=== PATIENT | female | born 1990 | race Two or more races ===

== ENCOUNTER 2025-02-16 14:02 | Emergency (ER) | payer OTHER ==
[~2025-02-16] VITALS: Ht 170.2 cm; Wt 70.3 kg
[2025-02-16] MEDS ORDERED: TRAMADOL HCL 50 MG TABLET PO ONE (14:30)
[2025-02-16 14:40] LABS: URINE APPEARANCE Clear; URINE BILIRRUBIN Negative (NEGATIVE); URINE BLOOD Negative; URINE COLOR Yellow; URINE GLUCOSE Negative (NEGATIVE); URINE KETONE Negative (NEGATIVE); URINE LEUKOCYTE Negative; URINE NITRATE Negative; URINE PROTEIN Negative (NEGATIVE); URINE UROBILINOGEN 0.2 E.U./dl
[2025-02-16 14:41] LABS: BASO % 0.3 % (0.1-1.2); EOS # 0.06 (0.04-0.54); EOS % 0.9 % (0.7-7.0); LYMPH # 2.10 (1.18-3.74); LYMPH % 30.1 % (19.3-53.1); MEAN PLATELET VOLUME 11.50 fl (9.4-12.4); MONO # 0.42 (0.24-0.82); MONO % 6.0 % (4.7-12.5); NEUT # 4.35 (1.56-6.13); NEUT % 62.4 % (34.0-71.1); RED CELL DISTRIBUTION WIDTH 13.2 % (11.6-14.4)
[2025-02-16 14:44] LABS: URINE BACTERIA 76.7 uL (0.0-1933); URINE EPITHELIAL CELLS 3.8 uL (0.0-38.8); URINE RBC 2.7 uL (0.0-20.8); URINE WBC 6.9 uL (0.0-23.2)
[2025-02-16 14:47] LABS: URINE CAST 0.29 uL (0.0-1.40)
[2025-02-16] MEDS ORDERED: NORFLEX100MG PO (14:53)
[2025-02-16] MEDS ORDERED: SURFAK240 M1 PO (14:53)
[2025-02-16 15:10] LABS: ALT/SGPT 16.0 U/L (12-78); AST/SGOT 16.0 U/L (15-37); BILIRUBIN TOTAL 0.81 mg/dL (0.3-1.2); BUN CREA RATIO 13.0 (7.0-25.0); CREATININE SERUM 0.82 mg/dL (0.55-1.02); GFR 79.8; GLOBULINA 3.8 G/DL (2.4-3.5); GLUCOSE FASTING 94.0 mg/dL (65-100); OSMOLALITY SERUM 280.0 MOSM/KG (275-295)
== END 2025-02-16 17:25 | disposition home or self-care (01) ==
LOC: ER 14:03
PROVIDERS: General Practice
DX: R10.A1 Flank pain, right side (principal); Z88.0 Allergy status to penicillin